=== PATIENT | male | born 1960 | race African-American/Black ===

== ENCOUNTER 2022-10-27 09:09 | Inpatient (IN) | payer MEDICAID ==
[~2022-10-27] VITALS: Ht 175.3 cm; Wt 124.3 kg
--- NOTE | 2022-10-27 09:20 | NUR ---
PT AMBULATED TO BED 12 WITH CANE. DAUGHTER AT BEDSIDE Addendum: 10/27/22 at 1133 by [email or web address] PT AMBULATED TO BED 12 WITH CANE. AT BEDSIDE
[2022-10-27 09:22] VITALS: BP 137/84; PULSE 103; RESP 14; TEMP 97.8; O2SAT 97
--- NOTE | 2022-10-27 10:09 | NUR ---
ASSESSING PT AT BEDSIDE
--- NOTE | 2022-10-27 10:10 | NUR ---
PATIENT PRESENTS TO ED WITH BILATERAL LEG, ABD, TESTICLE SWELLING X7DAYS. PT STATES SWELLING WORSE AND DIFFICULTY URINATING . DENIES N/V/D; SKIN IS PINK/WARM/DRY; AAOX4 WITH EVEN AND UNSTEADY GAIT USE OF WALKING DEVICE; HR EVEN AND REGULAR; PT DENIES ANY FEVER, CP, SOB, OR COUGH AT THIS TIME; PATIENT STATES PAIN OF 3/10 AT THIS TIME; VSS; PATIENT POSITIONED FOR COMFORT; HOB ELEVATED; BEDRAILS UP X2; BED DOWN. ER MD MADE AWARE OF PT STATUS. CALL LIGHT WITH REACH
--- NOTE | 2022-10-27 10:17 | NUR ---
X-Ray at bedside.
[2022-10-27 10:49] LABS: BASOPHILS # (AUTO) 0.1 K/uL (0.00-0.22); BASOPHILS % (AUTO) 0.6 % (0.0-2.0); EOSINOPHILS # (AUTO) 0.3 K/uL (0-0.4); EOSINOPHILS % (AUTO) 3.6 % (0.0-4.0); HEMATOCRIT 24.6 % (36-52); LYMPHOCYTES # (AUTO) 1.3 K/uL (2.0-11.5); LYMPHOCYTES % (AUTO) 15.9 % (20.5-51.1); MEAN CORPUSCULAR HEMOGLOBIN 29 pg (27-31); MEAN CORPUSCULAR HGB CONC 33 g/dL (33-37); MEAN CORPUSCULAR VOLUME 88.8 fL (80-94); MONOCYTES # (AUTO) 1.1 K/uL (0.8-1.0); MONOCYTES % (AUTO) 13.9 % (1.7-9.3); NEUTROPHILS # (AUTO) 5.3 K/uL (1.8-7.7); PLATELET COUNT (AUTO) 239 K/uL (140-450); RED BLOOD CELL COUNT(AUTO) 2.77 MIL/uL (4.20-6.10); RED CELL DISTRIBUTION WIDTH 20.7 % (11.6-13.7)
--- NOTE | 2022-10-27 11:08 | NUR ---
pt encouraged to give urine sample. unable to give at this time. urinal left at bedside. warm blanket provided. call light within reach
[2022-10-27 11:17] LABS: ALBUMIN 2.2 g/dL (3.4-5.0); ANION GAP 11.8 (8-16); CARBON DIOXIDE 26.5 mmol/L (21-32); CREATININE 2.6 mg/dL (0.6-1.3); POTASSIUM 4.3 mmol/L (3.5-5.1); TOTAL BILIRUBIN 0.9 mg/dL (0.0-1.0)
[2022-10-27 11:19] LABS: PROTHROMBIN TIME 14.4 secs (10.8-13.4)
[2022-10-27 11:22] LABS: LIPASE 89 U/L (73-393)
[2022-10-27] MEDS ORDERED: GABA-640 PO (11:35)
[2022-10-27] MEDS ORDERED: METH-1867 PO (11:35)
[2022-10-27] MEDS ORDERED: FURO40TA9 PO (11:35)
[2022-10-27] MEDS ORDERED: [UNRECOGNIZED DRUG - CODE] PO (11:42)
[2022-10-27] MEDS ORDERED: SIMV-30 PO (11:42)
[2022-10-27] MEDS ORDERED: FERR-15 PO (11:42)
[2022-10-27] MEDS ORDERED: [UNRECOGNIZED DRUG - CODE] PO (11:42)
[2022-10-27] MEDS ORDERED: NACL 0.9% 1,000 ML IV SCH (12:50)
[2022-10-27] MEDS ORDERED: MAGNESIUM OXIDE 400 MG TAB PO PRN (12:50)
[2022-10-27] MEDS ORDERED: ACETAMINOPHEN 325 MG TAB PO PRN (12:50)
[2022-10-27] MEDS ORDERED: ONDANSETRON 4 MG/2 ML VIAL IVP PRN (12:50)
[2022-10-27] MEDS ORDERED: cefTRIAXone 1,000 MG VIAL ONE (13:07)
[2022-10-27] MEDS: FUROSEMIDE 40 MG/4 ML VIAL IVP SCH ×2 (13:27→20:38)
--- NOTE | 2022-10-27 14:31 | NUR ---
Patient will be admitted to care of [facility]. Admited to MED SURG. Will go to [id number]. Belongings list completed. Report to NIC YOON.
[2022-10-27 14:34] LABS: APPEARANCE,URINE CLEAR (CLEAR); BILIRUBIN,URINE NEGATIVE (NEGATIVE); BLOOD, URINE NEGATIVE (NEGATIVE); COLOR,URINE YELLOW (YELLOW); LEUKOCYTE ESTERASE ,URINE NEGATIVE (NEGATIVE); NITRITE, URINE NEGATIVE (NEGATIVE); UGLUCOSE NEGATIVE (NEGATIVE)
--- NOTE | 2022-10-27 14:48 | NUR ---
RECEIVE MR. DOUGLAS FROM ER NURSE THAT PATIENT COME FROM HOME FOR BODY SWELLING FROM CHEST DOWN WHICH DIAGNOSIS ANASARCA WITH HX OF DM, HTN, GASTRIC ULCER GI BLEEDING & IVER CIRRHOSIS/DISEASE. PATIENT HAS NKA, FULL CODE, ABLE TO AMBULATORY W/ CANE, ALERT X 4, ON ROOM AIR. CURRENT IS NPO EXCEPT MEDS STATUS; PIV AT RAC 20G SALINE LOCK. NO ACUTE SKIN ISSUE; VITAL WITHIN PATIENT'S BASELINE (T-P-R: 97.1-86-20, BP: 131/73, O2 SAT 99% IN ROOM AIR, X-RAY SHOWS LOWER LUNG VOLUME AT LOWER LOBES. ROCEPHIN GIVE IN ER. WILL CONTINUE TO MONITOR
--- NOTE | 2022-10-27 15:35 | NUR ---
PATIENT HAS BEEN SCREENED AND CATEGORIZED LOW NUTRITION RISK. PATIENT WILL BE SEEN WITHIN 7 DAYS OF ADMISSION. 11/03/[address]
--- NOTE | 2022-10-27 15:46 | NUR ---
DC PLANN[age] YRS OLD MALE PATIENT WAS ADMITTED FROM HOME WITH A DX OF ANASARCA. PATIENT HAS A HX OF DM, HTN, GI BLEED ETOH CIRRHOSIS. CXR SHOWED LOW LUNG VOLUME . US KIDNEY NORMAL. ABDOMINAL US SHOWED MODERATE TO LARGE ABDOMINAL ASCITES. ADMINISTERED IV ABX ROCEPHIN AND LASIX AND IRON IV. CONTINUED HOME MEDS. CONSULTED WITH GI AND NEPHRO. DC PLAN TO GO HOME WHEN STABLE. Addendum: 10/30/22 at 1103 by June Garcia RN DC PLANNING: SEEN BY GI DR HEADLEY ORDERED IR TO PERFORM PARACENTESIS HOWEVER PT/INR 1.35 AND 65.0 ON 10/29. UNABLE TO PERFORM PARACENTESIS BECAUSE OF HIGH PTT. CM TO FOLLOW
[2022-10-27 16:00] VITALS: BP 141/70; PULSE 85; RESP 17; TEMP 97.2; O2SAT 97
[2022-10-27 19:23] VITALS: PULSE 85; RESP 17; O2SAT 97
--- NOTE | 2022-10-27 19:25 | NUR ---
RECEIVED BEDSIDE REPORT FROM NIC YOON FOR CONTINUITY OF CARE. PATIENT IS AWAKE AND STABLE. A&OX4. C/O 10 BACK PAIN. ENDORSED TO NIC YOON FOR IV PRN. ON ROOM AIR WITH NO APPARENT S/SX OF ACUTE DISTRESS. RESPIRATIONS EVEN AND UNLABORED. IV SITE TO THE RAC 20G PATENT/INTACT SL. PATIENT IS CONTINENT IS ABLE TO AMBULATE. PLAN OF CARE AND WHITE COMMUNICATION BOARD UPDATED. ALL SAFETY MEASURES IN PLACE. CALL LIGHT WITHIN REACH. ENCOURAGED TO CALL FOR ANY NEEDS/ASSISTANCE. BED IN LOW/LOCKED POSITION. SIDE RAILS X2 UP. WILL CONTINUE TO MONITOR.
[2022-10-27] MEDS: MORPHINE SULFATE 4 MG/ML SYR IVP PRN (19:35)
[2022-10-27 20:00] VITALS: BP 138/75; PULSE 80; PULSE 88; RESP 18; RESP 20; TEMP 98.2; O2SAT 95; O2SAT 96
--- NOTE | 2022-10-27 20:00 | NUR ---
Patient's Plan of Care was discussed and reviewed with MAYO GIFFORD:
--- NOTE | 2022-10-27 21:05 | NUR ---
U/S TECH AT BEDSIDE WITH PATIENT. PATIENT REPORTS PAIN MEDICATION EFFECTIVE. RESPIRATIONS EVEN AND UNLABORED WITH NO APPARENT S/SX OF ACUTE DISTRESS. INFORMED PATIENT THAT STOOL CULTURE IS NEEDED PER MD ORDER. PATIENT WILL CALL IF ABOUT TO HAVE A BOWEL MOVEMENT. PATIENT VERBALIZED UNDERSTANDING. ALL SAFETY MEASURES IN PLACE. CALL LIGHT WITHIN REACH. ENCOURAGED TO CALL FOR ANY NEEDS/ASSISTANCE. BED IN LOW/LOCKED POSITION. HOB AT 30 DEGREES. SIDE RAILS X2 UP. WILL CONTINUE TO MONITOR.
--- NOTE | 2022-10-27 23:10 | NUR ---
PATIENT IS AWAKE AND STABLE WHILE WATCHING TV. DENIES PAIN AT THIS TIME. RESPIRATIONS EVEN AND UNLABORED WITH NO APPARENT S/SX OF ACUTE DISTRESS. WHITE COMMUNICATION BOARD UPDATED. ALL SAFETY MEASURES IN PLACE. CALL LIGHT WITHIN REACH. ENCOURAGED TO CALL FOR ANY NEEDS/ASSISTANCE. BED IN LOW/LOCKED POSITION. SIDE RAILS X2 UP. WILL CONTINUE TO MONITOR.
--- NOTE | 2022-10-28 01:10 | NUR ---
PROVIDED SOME ICE CHIPS PER PATIENT REQUEST. DENIES PAIN AT THIS TIME. RESPIRATIONS EVEN AND UNLABORED WITH NO APPARENT S/SX OF ACUTE DISTRESS. WHITE COMMUNICATION BOARD UPDATED. ALL SAFETY MEASURES IN PLACE. CALL LIGHT WITHIN REACH. BED IN LOW/LOCKED POSITION. WILL CONTINUE TO MONITOR.
[2022-10-28 04:00] VITALS: BP 96/53; PULSE 94; RESP 17; TEMP 97.6; O2SAT 100
--- NOTE | 2022-10-28 05:05 | NUR ---
PATIENT STABLE AND ASLEEP WITH NO FACIAL GRIMACING. FLACC=0. CHEST IS RISING AND FALLING SYMMETRICALLY. RESPIRATIONS EVEN AND UNLABORED WITH NO APPARENT S/SX OF ACUTE DISTRESS. ALL NEEDS MET AT THIS TIME. WHITE COMMUNICATION BOARD UPDATED. ALL SAFETY MEASURES IN PLACE. CALL LIGHT WITHIN REACH. BED IN LOW/LOCKED POSITION. SIDE RAILS X2 UP. WILL CONTINUE TO MONITOR.
[2022-10-28 06:02] LABS: BASOPHILS # (AUTO) 0.1 K/uL (0.00-0.22); BASOPHILS % (AUTO) 0.9 % (0.0-2.0); EOSINOPHILS # (AUTO) 0.4 K/uL (0-0.4); EOSINOPHILS % (AUTO) 5.2 % (0.0-4.0); HEMATOCRIT 23.4 % (36-52); HEMOGLOBIN 7.7 g/dL (12.0-18.0); LYMPHOCYTES # (AUTO) 1.6 K/uL (2.0-11.5); LYMPHOCYTES % (AUTO) 23.4 % (20.5-51.1); MEAN CORPUSCULAR HEMOGLOBIN 29 pg (27-31); MEAN CORPUSCULAR HGB CONC 33 g/dL (33-37); MEAN CORPUSCULAR VOLUME 87.8 fL (80-94); MONOCYTES # (AUTO) 1.2 K/uL (0.8-1.0); MONOCYTES % (AUTO) 17.5 % (1.7-9.3); NEUTROPHILS # (AUTO) 3.7 K/uL (1.8-7.7); PLATELET COUNT (AUTO) 227 K/uL (140-450); RED BLOOD CELL COUNT(AUTO) 2.66 MIL/uL (4.20-6.10); RED CELL DISTRIBUTION WIDTH 20.2 % (11.6-13.7)
[2022-10-28 06:18] LABS: MAGNESIUM 1.7 mg/dL (1.8-2.4); PHOSPHORUS 4.1 mg/dL (2.5-4.9)
[2022-10-28 06:22] LABS: ALBUMIN 1.9 g/dL (3.4-5.0); ANION GAP 10.4 (8-16); CARBON DIOXIDE 26.3 mmol/L (21-32); CREATININE 2.3 mg/dL (0.6-1.3); POTASSIUM 3.7 mmol/L (3.5-5.1); TOTAL BILIRUBIN 0.9 mg/dL (0.0-1.0)
[2022-10-28] MEDS ORDERED: ALBUMIN HUMAN 25% 100 ML IV SCH (06:56)
--- NOTE | 2022-10-28 07:05 | NUR ---
ENDORSED PATIENT TO NIC YOON FOR CONTINUITY OF CARE. PATIENT IS STABLE.
[2022-10-28] MEDS ORDERED: MAG SULF 2000 MG/WATER PREMIX 50 ML IV SCH (07:15)
[2022-10-28] MEDS: FUROSEMIDE 40 MG/4 ML VIAL IVP SCH ×3 (07:49→18:29)
[2022-10-28 08:00] VITALS: BP 108/68; PULSE 94; RESP 18; TEMP 97.3; O2SAT 95
[2022-10-28] MEDS: SPIRONOLACTONE 25 MG TAB PO SCH (10:23)
[2022-10-28] MEDS: SODIUM FERRIC GLUCONATE 125 MG in NACL 0.9% 100 ML IV SCH (10:23)
[2022-10-28] MEDS: MORPHINE SULFATE 4 MG/ML SYR IVP PRN (10:25)
[2022-10-28] MEDS: MIDODRINE 5 MG TAB PO SCH ×2 (12:57→18:29)
--- NOTE | 2022-10-28 13:40 | NUR ---
Rehabilitation Therapy Aide ECONOMIC ADVISER conducted a discharge planning assessment. Pt. was agreeable to this interview. The face sheet demographics have been confirmed. Pt. resides in a home with his and 3 kids. Pt. stated he does not want to participate in any substance program and can stop drinking on his own just like he did with [employer], "back in the day" . Pt. stated he use to drink beer but had cut down. About two months ago, had been at [facility] and had a bleeding ulcer. feels this scared pt. and does not see pt. drinking. Pt. stated he did not want to participate in any program. ECONOMIC ADVISER provided resources, mental health and substance abuse. Pt. stated about 3 years ago had been placed on a 5150 and was diagnosed with depression and anxiety, was prescribed medication but did not like the way it made him feel so he stopped taking meds. ECONOMIC ADVISER educated pt. stating there were other meds he could take if he wanted. ECONOMIC ADVISER provided pt with alcohol and substance abuse resources as well and mental health resources to get a therapist. ECONOMIC ADVISER will remain available as needed.
[2022-10-28 14:21] LABS: CREATININE,URINE RANDOM 231 mg/dL (30-125); URINE SODIUM, RANDOM 12 mmol/l (40-220)
[2022-10-28 16:00] VITALS: BP 109/69; PULSE 98; RESP 18; TEMP 96; O2SAT 91
--- NOTE | 2022-10-28 19:05 | NUR ---
RECEIVED BEDSIDE REPORT FROM NIC YOON FOR CONTINUITY OF CARE. PATIENT IS AWAKE AND STABLE. A&OX4. DENIES PAIN AT THIS TIME. COLLECTED STOOL SAMPLE FOR STOOL OCCULT PER MD ORDER. ON ROOM AIR WITH NO APPARENT S/SX OF ACUTE DISTRESS. RESPIRATIONS EVEN AND UNLABORED. IV SITE TO THE RAC 20G PATENT/INTACT SL. PATIENT IS CONTINENT IS ABLE TO AMBULATE. PLAN OF CARE AND WHITE COMMUNICATION BOARD UPDATED. ALL SAFETY MEASURES IN PLACE. CALL LIGHT WITHIN REACH. ENCOURAGED TO CALL FOR ANY NEEDS/ASSISTANCE. BED IN LOW/LOCKED POSITION. SIDE RAILS X2 UP. WILL CONTINUE TO MONITOR.
[2022-10-28 20:00] VITALS: BP 115/71; PULSE 92; RESP 18; RESP 19; TEMP 98.7; O2SAT 95
--- NOTE | 2022-10-28 21:00 | NUR ---
Patient's Plan of Care was discussed and reviewed with ИРИНА GODINEZ
--- NOTE | 2022-10-28 21:05 | NUR ---
EMPTIED PATIENT'S BEDSIDE URINAL. TOLERATED WELL. DENIES PAIN AT THIS TIME. NO NEEDS AT THIS TIME PER PATIENT. RESPIRATIONS EVEN AND UNLABORED WITH NO APPARENT S/SX OF ACUTE DISTRESS. WHITE COMMUNICATION BOARD UPDATED. ALL SAFETY MEASURES IN PLACE. CALL LIGHT WITHIN REACH. ENCOURAGED TO USE CALL LIGHT FOR ANY NEEDS/ASSISTANCE. WILL CONTINUE TO MONITOR.
[2022-10-29] MEDS: FUROSEMIDE 40 MG/4 ML VIAL IVP SCH ×4 (00:24→18:13)
--- NOTE | 2022-10-29 03:00 | NUR ---
CHECKED PATIENT. PATIENT IS STABLE AND ASLEEP WITH NO FACIAL GRIMACING. FLACC=0. CHEST IS RISING AND FALLING SYMMETRICALLY. RESPIRATIONS EVEN AND UNLABORED WITH NO APPARENT S/SX OF ACUTE DISTRESS. WHITE COMMUNICATION BOARD UPDATED. ALL SAFETY MEASURES IN PLACE. CALL LIGHT WITHIN REACH. BED IN LOW/LOCKED POSITION. WILL CONTINUE TO MONITOR.
[2022-10-29 04:00] VITALS: BP 118/68; PULSE 89; RESP 19; TEMP 97.6; O2SAT 98
[2022-10-29] MEDS: MORPHINE SULFATE 4 MG/ML SYR IVP PRN ×3 (04:41→18:13)
--- NOTE | 2022-10-29 05:00 | NUR ---
PATIENT IS AWAKE AND STABLE. PATIENT WAS MEDICATED AT 0441 FOR SEVERE PAIN. WILL REASSESS AT 0541. RESPIRATIONS EVEN AND UNLABORED WITH NO APPARENT S/SX OF ACUTE DISTRESS. ALL NEEDS MET AT THIS TIME. WHITE COMMUNICATION BOARD UPDATED. ALL SAFETY MEASURES IN PLACE. CALL LIGHT WITHIN REACH. ENCOURAGED TO CALL FOR ANY NEEDS/ASSISTANCE. BED IN LOW/LOCKED POSITION. SIDE RAILS X2 UP. WILL CONTINUE TO MONITOR.
[2022-10-29] MEDS: MIDODRINE 5 MG TAB PO SCH ×3 (06:04→19:00)
[2022-10-29 06:45] LABS: BASOPHILS # (AUTO) 0.1 K/uL (0.00-0.22); EOSINOPHILS # (AUTO) 0.3 K/uL (0-0.4); EOSINOPHILS % (AUTO) 4.3 % (0.0-4.0); HEMATOCRIT 23.9 % (36-52); HEMOGLOBIN 7.7 g/dL (12.0-18.0); LYMPHOCYTES # (AUTO) 1.8 K/uL (2.0-11.5); LYMPHOCYTES % (AUTO) 25.7 % (20.5-51.1); MEAN CORPUSCULAR HEMOGLOBIN 28 pg (27-31); MEAN CORPUSCULAR HGB CONC 32 g/dL (33-37); MEAN CORPUSCULAR VOLUME 87.3 fL (80-94); MONOCYTES # (AUTO) 1.3 K/uL (0.8-1.0); MONOCYTES % (AUTO) 17.8 % (1.7-9.3); NEUTROPHILS # (AUTO) 3.6 K/uL (1.8-7.7); NEUTROPHILS % (AUTO) 51.2 % (42.2-75.2); PLATELET COUNT (AUTO) 242 K/uL (140-450); RED BLOOD CELL COUNT(AUTO) 2.74 MIL/uL (4.20-6.10); RED CELL DISTRIBUTION WIDTH 20.7 % (11.6-13.7); WHITE BLOOD COUNT (AUTO) 7.1 K/uL (4.8-10.8)
[2022-10-29 06:47] LABS: MAGNESIUM 1.8 mg/dL (1.8-2.4); PHOSPHORUS 3.8 mg/dL (2.5-4.9)
[2022-10-29 06:56] LABS: ALBUMIN 2.2 g/dL (3.4-5.0); CARBON DIOXIDE 24.5 mmol/L (21-32); CREATININE 1.9 mg/dL (0.6-1.3); POTASSIUM 3.5 mmol/L (3.5-5.1); TOTAL BILIRUBIN 0.7 mg/dL (0.0-1.0)
--- NOTE | 2022-10-29 07:05 | NUR ---
ENDORSED PATIENT TO CLARA YOON FOR CONTINUITY OF CARE. PATIENT IS STABLE.
[2022-10-29 08:00] VITALS: PULSE 62; RESP 18; O2SAT 98
[2022-10-29] MEDS: metOLazone 5 MG TAB PO SCH ×2 (09:00→21:03)
[2022-10-29] MEDS: SPIRONOLACTONE 25 MG TAB PO SCH (10:32)
[2022-10-29] MEDS: SODIUM FERRIC GLUCONATE 125 MG in NACL 0.9% 100 ML IV SCH (10:34)
--- NOTE | 2022-10-29 12:00 | NUR ---
PT IV INFILTRATED. NEW IV TO LEFT AC 20G. NEW IV CLEAN, INTACT, PT. NO FURTHER NEEDS TO BE MET, CALL LIGHT WITHIN REACH.
[2022-10-29 16:00] VITALS: BP 125/67; PULSE 79; RESP 20; TEMP 97.1; O2SAT 100
--- NOTE | 2022-10-29 19:00 | NUR ---
ENDORSED TO NIGHTSHIFT NURSE FOR CONTINUITY OF CARE. PT STABLE - NO SIGNS OF DISTRESS. CALL LIGHT IS WITHIN REACH.
--- NOTE | 2022-10-29 19:20 | NUR ---
PATIENT AWAKE ALERT WELL RESTED ON ROOM AIR. NO SOB NOTED. RESPIRATION EVEN UNLABORED. IV ACCESS ON THE LAC 20 GAUGE. CALL LIGHT WITHIN REACH. NO COMPLAINTS OF PAIN AT THIS TIME. BED WHEELS LOCK IN LOW POSITION.
[2022-10-29 20:00] VITALS: PULSE 85; RESP 18; O2SAT 98
--- NOTE | 2022-10-29 21:03 | NUR ---
ADMINISTERED SCHEDULED MEDICATION PER MD ORDER.
[2022-10-30 04:00] VITALS: BP 117/69; PULSE 94; RESP 18; TEMP 97; O2SAT 97
[2022-10-30] MEDS: FUROSEMIDE 40 MG/4 ML VIAL IVP SCH ×2 (06:00)
[2022-10-30 06:26] LABS: MAGNESIUM 1.6 mg/dL (1.8-2.4); PHOSPHORUS 3.5 mg/dL (2.5-4.9)
[2022-10-30] MEDS: MIDODRINE 5 MG TAB PO SCH ×3 (06:35→20:59)
[2022-10-30 06:38] LABS: BASOPHILS # (AUTO) 0.1 K/uL (0.00-0.22); BASOPHILS % (AUTO) 0.8 % (0.0-2.0); EOSINOPHILS # (AUTO) 0.2 K/uL (0-0.4); EOSINOPHILS % (AUTO) 3.5 % (0.0-4.0); HEMATOCRIT 24.6 % (36-52); HEMOGLOBIN 8.1 g/dL (12.0-18.0); LYMPHOCYTES # (AUTO) 1.2 K/uL (2.0-11.5); LYMPHOCYTES % (AUTO) 19.7 % (20.5-51.1); MEAN CORPUSCULAR HEMOGLOBIN 29 pg (27-31); MEAN CORPUSCULAR HGB CONC 33 g/dL (33-37); MEAN CORPUSCULAR VOLUME 87.8 fL (80-94); MONOCYTES # (AUTO) 1.2 K/uL (0.8-1.0); MONOCYTES % (AUTO) 19.5 % (1.7-9.3); NEUTROPHILS # (AUTO) 3.5 K/uL (1.8-7.7); NEUTROPHILS % (AUTO) 56.5 % (42.2-75.2); PLATELET COUNT (AUTO) 251 K/uL (140-450); RED CELL DISTRIBUTION WIDTH 20.4 % (11.6-13.7); WHITE BLOOD COUNT (AUTO) 6.3 K/uL (4.8-10.8)
--- NOTE | 2022-10-30 06:41 | NUR ---
PATIENT IS ASKING FOR MORPHINE , DID NOT ADMINISTER DUE TO LOW BP- 101/69.
[2022-10-30 06:57] LABS: ALBUMIN 2.3 g/dL (3.4-5.0); ANION GAP 11.9 (8-16); CARBON DIOXIDE 27.2 mmol/L (21-32); CREATININE 1.8 mg/dL (0.6-1.3); POTASSIUM 3.1 mmol/L (3.5-5.1); TOTAL BILIRUBIN 0.7 mg/dL (0.0-1.0)
[2022-10-30] MEDS ORDERED: POTASSIUM CHLORIDE 10 MEQ TABER PO SCH (07:14)
[2022-10-30] MEDS ORDERED: MAG SULF 2000 MG/WATER PREMIX 50 ML IV SCH (07:14)
--- NOTE | 2022-10-30 07:23 | NUR ---
receive the patient from the night auditor rn in rm [address] with admitting diagnosis of anasarca . schedule for paracentesis today . will continue to monitor
--- NOTE | 2022-10-30 07:33 | NUR ---
BEDSIDE REPORT GIVEN TO AM NURSE FOR CONTINUITY OF CARE.
[2022-10-30 07:56] VITALS: PULSE 82
[2022-10-30 07:58] VITALS: PULSE 82; RESP 20; O2SAT 99
[2022-10-30 08:00] VITALS: BP 139/67; PULSE 85; RESP 20; TEMP 97.6; O2SAT 100
[2022-10-30] MEDS: SPIRONOLACTONE 25 MG TAB PO SCH (09:08)
[2022-10-30] MEDS: SODIUM FERRIC GLUCONATE 125 MG in NACL 0.9% 100 ML IV SCH (09:08)
[2022-10-30] MEDS: metOLazone 5 MG TAB PO SCH ×2 (09:10→20:58)
[2022-10-30] MEDS: MORPHINE SULFATE 4 MG/ML SYR IVP PRN ×2 (11:23→22:02)
[2022-10-30 12:20] LABS: PROTHROMBIN TIME 15.2 secs (10.8-13.4)
[2022-10-30] MEDS: FUROSEMIDE 100 MG/10 ML VIAL IVP SCH ×3 (12:25→23:39)
--- NOTE | 2022-10-30 14:26 | NUR ---
reported PTT 71.4 to Md Richards . ok to go on with paracentesis . will make the patient sign consent
--- NOTE | 2022-10-30 14:45 | NUR ---
Md Nunes perform paracentesis for the patinet bedside . was able to have output 7.8 liters . patient able to tolerate the procedure . all the samples was sent to the lab for culture . albumin was also administered to prevent hypotension
[2022-10-30 16:00] VITALS: BP 125/67; PULSE 79; RESP 20; TEMP 97.1; O2SAT 100
[2022-10-30] MEDS ORDERED: ALBUMIN HUMAN 25% 50 ML IV ONE ×3 (17:05)
[2022-10-30] MEDS: ALBUMIN HUMAN 25% 100 ML IV SCH ×2 (17:27→20:59)
[2022-10-30 18:07] LABS: APPEARANCE,SPUN,BODY FLUID CLEAR (CLEAR); APPEARANCE,UNSPUN,BODY FLUID CLEAR (CLEAR); COLOR,BODY FLUID LT YELLOW (LT YELLOW); SPECIMENTYPE,BODY FLUID PERITONEAL
[2022-10-30 18:08] LABS: RBC, BODY FLUID 333 /cu. mm.; TOTAL VOLUME,BODY FLUID 7800 mL; WBC, BODY FLUID 98 /cu. mm.
[2022-10-30 18:13] LABS: GLUCOSE,BODY FLUID 150 mg/dL
[2022-10-30 18:29] LABS: POLYNUCLEAR, BODY FLUID 42 %
--- NOTE | 2022-10-30 19:07 | NUR ---
will endorse to solder technician rn for continuity of care. will continue to monitor
[2022-10-30 20:00] VITALS: BP 101/61; PULSE 94; RESP 18; TEMP 97.9; O2SAT 94
--- NOTE | 2022-10-30 20:55 | NUR ---
PATIENT IV INFILTRATED. STARTED A NEW IV LINE TO RIGHT HAND WITH GOOD BACK FLOW OF BLOOD. WELL TOLERATED. RESUME ALBUMIN HUMAN 25%.
--- NOTE | 2022-10-30 20:58 | NUR ---
ALL SCHEDULED MEDICATIONS ADMINISTERED PER MD ORDER.
[2022-10-30] MEDS ORDERED: ALBUMIN HUMAN 25% 100 ML IV SCH ×2 (22:55)
[2022-10-30] MEDS ORDERED: ALBUMIN HUMAN 25% 50 ML IV SCH (22:55)
--- NOTE | 2022-10-31 02:25 | NUR ---
PATIENT STARTED BLOOD TRANSFUSION OF FROZEN PLASMA. CLOSELY MONITORED. V/S TAKEN AND RECORDED.
--- NOTE | 2022-10-31 03:25 | NUR ---
BLOOD TRANSFUSION COMPLETED . NO ADVERSE REACTION NOTED AT THIS TIME.
[2022-10-31] MEDS: FUROSEMIDE 100 MG/10 ML VIAL IVP SCH ×4 (05:54→23:47)
[2022-10-31 06:02] LABS: BASOPHILS # (AUTO) 0.1 K/uL (0.00-0.22); BASOPHILS % (AUTO) 0.9 % (0.0-2.0); EOSINOPHILS # (AUTO) 0.2 K/uL (0-0.4); EOSINOPHILS % (AUTO) 3.6 % (0.0-4.0); HEMATOCRIT 22.3 % (36-52); HEMOGLOBIN 7.5 g/dL (12.0-18.0); LYMPHOCYTES # (AUTO) 1.6 K/uL (2.0-11.5); LYMPHOCYTES % (AUTO) 23.9 % (20.5-51.1); MEAN CORPUSCULAR HEMOGLOBIN 29 pg (27-31); MEAN CORPUSCULAR HGB CONC 34 g/dL (33-37); MEAN CORPUSCULAR VOLUME 86.1 fL (80-94); MONOCYTES # (AUTO) 1.3 K/uL (0.8-1.0); MONOCYTES % (AUTO) 18.9 % (1.7-9.3); NEUTROPHILS # (AUTO) 3.5 K/uL (1.8-7.7); NEUTROPHILS % (AUTO) 52.7 % (42.2-75.2); PLATELET COUNT (AUTO) 228 K/uL (140-450); RED BLOOD CELL COUNT(AUTO) 2.59 MIL/uL (4.20-6.10); RED CELL DISTRIBUTION WIDTH 20.3 % (11.6-13.7); WHITE BLOOD COUNT (AUTO) 6.7 K/uL (4.8-10.8)
--- NOTE | 2022-10-31 07:04 | NUR ---
PATIENT IN STABLE CONDITION. WILL ENDORSE TO MORNING NURSE FOR CONTINUITY OF CARE.
[2022-10-31] MEDS: MIDODRINE 5 MG TAB PO SCH ×3 (07:07→16:47)
--- NOTE | 2022-10-31 07:07 | NUR ---
receive the patient from maintenance technician 2nd shift malik Burnham in rm [address] aox4 admitting diagnosis anasarca . will continue to monitor
[2022-10-31 07:30] LABS: MAGNESIUM 1.6 mg/dL (1.8-2.4); PHOSPHORUS 2.9 mg/dL (2.5-4.9)
[2022-10-31 07:48] VITALS: PULSE 88
[2022-10-31 07:49] VITALS: PULSE 93; RESP 20; O2SAT 99
[2022-10-31 08:00] VITALS: BP 107/55; PULSE 91; RESP 18; TEMP 97; O2SAT 100
[2022-10-31] MEDS: metOLazone 5 MG TAB PO SCH ×2 (09:32→21:01)
[2022-10-31] MEDS: SPIRONOLACTONE 25 MG TAB PO SCH (09:33)
[2022-10-31] MEDS: SODIUM FERRIC GLUCONATE 125 MG in NACL 0.9% 100 ML IV SCH (09:34)
[2022-10-31 10:08] LABS: ALBUMIN 2.5 g/dL (3.4-5.0); ANION GAP 16.7 (8-16); CARBON DIOXIDE 23.5 mmol/L (21-32); CREATININE 1.4 mg/dL (0.6-1.3); POTASSIUM 3.2 mmol/L (3.5-5.1); TOTAL BILIRUBIN 0.8 mg/dL (0.0-1.0)
[2022-10-31] MEDS: MORPHINE SULFATE 4 MG/ML SYR IVP PRN ×3 (10:14→23:58)
[2022-10-31] MEDS: POTASSIUM CHLORIDE 10 MEQ TABER PO PRN (12:36)
[2022-10-31 16:00] VITALS: BP 109/67; PULSE 64; RESP 20; TEMP 98.7; O2SAT 98
--- NOTE | 2022-10-31 19:18 | NUR ---
will endorse to pull socket assembler malik Burnham for continuity of care . for Nephrology consult under Md Camp . md camp have seen the patient
[2022-10-31 20:00] VITALS: PULSE 87; RESP 18; O2SAT 94
--- NOTE | 2022-10-31 20:00 | NUR ---
PATIENT AWAKE RESTING WATCHING TV. NO S/S OF DISTRESS. RESPIRATION EVEN UNLABORED. NO COMPLAINTS OF PAIN AT THIS TIME. IV ACCESS TO LEFT AC SALINE LOCK. CALL LIGHT WITHIN REACH. BED WHEELS LOCKED IN LOW POSITION. VISITORS AT BEDSIDE.
--- NOTE | 2022-10-31 21:01 | NUR ---
DUE MEDICATION GIVEN ORDERED.
[2022-11-01 04:00] VITALS: BP 95/54; PULSE 84; RESP 18; TEMP 97.6; O2SAT 95
[2022-11-01] MEDS: FUROSEMIDE 100 MG/10 ML VIAL IVP SCH ×4 (06:00→23:25)
[2022-11-01] MEDS: MIDODRINE 5 MG TAB PO SCH ×3 (06:21→17:37)
[2022-11-01] MEDS ORDERED: DEXTROSE 50% 50 ML SYR IVP PRN (06:35)
[2022-11-01] MEDS ORDERED: INSULIN LISPRO SLIDING SCALE 100 UNITS/ML VIAL SUBQ PRN (06:35)
[2022-11-01 06:50] LABS: HEMATOCRIT 24.1 % (36-52); HEMOGLOBIN 7.9 g/dL (12.0-18.0); MEAN CORPUSCULAR HEMOGLOBIN 29 pg (27-31); MEAN CORPUSCULAR HGB CONC 33 g/dL (33-37); MEAN CORPUSCULAR VOLUME 87.9 fL (80-94); PLATELET COUNT (AUTO) 246 K/uL (140-450); RED BLOOD CELL COUNT(AUTO) 2.74 MIL/uL (4.20-6.10); RED CELL DISTRIBUTION WIDTH 20.4 % (11.6-13.7); WHITE BLOOD COUNT (AUTO) 7.7 K/uL (4.8-10.8)
[2022-11-01 06:58] LABS: MAGNESIUM 1.2 mg/dL (1.8-2.4); PHOSPHORUS 2.7 mg/dL (2.5-4.9)
--- NOTE | 2022-11-01 07:09 | NUR ---
receive the patient from the night shift supervisor malik Burnham in [address] aox4 with admitting anasarca will continue to monitor
[2022-11-01 07:10] LABS: ALBUMIN 2.4 g/dL (3.4-5.0); ANION GAP 7.6 (8-16); CARBON DIOXIDE 33.4 mmol/L (21-32); CREATININE 1.2 mg/dL (0.6-1.3); TOTAL BILIRUBIN 0.9 mg/dL (0.0-1.0)
--- NOTE | 2022-11-01 07:25 | NUR ---
GAVE REPORT TO MORNING NURSE FOR CONTINUITY OF CARE. PATIENT STABLE.
[2022-11-01] MEDS: BLOOD GLUCOSE MONITORING 1 DEV DEV FS SCH ×4 (07:30→20:50)
[2022-11-01 07:39] VITALS: PULSE 89
[2022-11-01 07:40] LABS: EOSINOPHILS % (MANUAL) 4 % (0-4); LYMPHOCYTES % (MANUAL) 20 % (20-46); MONOCYTES % (MANUAL) 15 % (5-12)
[2022-11-01 08:00] VITALS: BP 108/61; PULSE 91; RESP 18; TEMP 97; O2SAT 100
[2022-11-01 08:12] VITALS: PULSE 83; RESP 20; O2SAT 99
[2022-11-01] MEDS: SPIRONOLACTONE 25 MG TAB PO SCH (09:16)
[2022-11-01] MEDS: POTASSIUM CHLORIDE 10 MEQ TABER PO PRN (09:16)
[2022-11-01] MEDS: metOLazone 5 MG TAB PO SCH ×2 (09:16→20:21)
[2022-11-01] MEDS: SODIUM FERRIC GLUCONATE 125 MG in NACL 0.9% 100 ML IV SCH (09:18)
[2022-11-01] MEDS: MORPHINE SULFATE 4 MG/ML SYR IVP PRN ×2 (12:10→20:24)
[2022-11-01] MEDS ORDERED: POTASSIUM CHLORIDE 40 MEQ, LIDOCAINE 1% 25 MG in NACL 0.9% 250 ML IV SCH (14:30)
[2022-11-01 16:00] VITALS: BP 109/67; PULSE 87; RESP 18; TEMP 97.3; O2SAT 100
--- NOTE | 2022-11-01 18:52 | NUR ---
will endorse to material handler 1st shift rn for continuity of care to monitor electrolyte imbalance
[2022-11-01 20:00] VITALS: PULSE 94; RESP 18; O2SAT 98
--- NOTE | 2022-11-01 20:21 | NUR ---
ADMINISTERED SCHEDULED MEDICATION.
--- NOTE | 2022-11-01 20:24 | NUR ---
PATIENT ALERT ORIENTED IN BED RESTING ON ROOM AIR. NO ACUTE DISTRESS. COMPLAINED OF SEVERE PAIN 10/10 TO BILATERAL KNEES, HIPS, SHOULDERS AND BACK. MEDICATED ORDERED. CALL LIGHT WITHIN REACH. BED WHEELS LOCKED IN LOW POSITION. VISITOR AT BEDSIDE. WILL CONTINUE TO MONITOR PT.
[2022-11-02 04:00] VITALS: BP 102/57; PULSE 91; RESP 18; TEMP 98.4; O2SAT 100
[2022-11-02] MEDS: FUROSEMIDE 100 MG/10 ML VIAL IVP SCH (06:00)
[2022-11-02] MEDS: MIDODRINE 5 MG TAB PO SCH (06:31)
--- NOTE | 2022-11-02 06:43 | NUR ---
PATIENT AWAKE IN STABLE CONDITION. NO SOB. CALL LIGHT IN REACH. WILL ENDORSE TO THE NEXT SHIFT NURSE FOR CONTINUITY OF CARE.
--- NOTE | 2022-11-02 07:15 | NUR ---
RECEIVED REPORT FROM PESTICIDE CONTROL INSPECTOR NURSE FOR CONTINUITY OF CARE. PATIENT IS AWAKE, ALERT AND ORIENTED X4. CURRENTLY ON ROOM AIR WITH NO APPARENT SIGNS OF ACUTE DISTRESS NOTED. PATIENT STATES NO PAIN. SKIN WARM, DRY AND INTACT. IV SITE LOCATED AT LEFT AC 20 GAUGE AND RIGHT HAND 22 GAUGE, BOTH FLUSHED FOR PATENCY. CALL LIGHT WITHIN REACH, POC DISCUSSED, WHITE BOARD UPDATED.
[2022-11-02 08:00] VITALS: BP 108/62; PULSE 83; PULSE 88; RESP 18; RESP 20; TEMP 97.4; O2SAT 100; O2SAT 99
--- NOTE | 2022-11-02 08:00 | NUR ---
Patient's Plan of Care was discussed and reviewed with ИРИНА: SRINIVAS
[2022-11-02] MEDS: BLOOD GLUCOSE MONITORING 1 DEV DEV FS SCH (08:10)
[2022-11-02] MEDS: SPIRONOLACTONE 25 MG TAB PO SCH (08:11)
[2022-11-02] MEDS: metOLazone 5 MG TAB PO SCH (08:11)
[2022-11-02] MEDS ORDERED: SPIR50TA PO (08:35)
[2022-11-02] MEDS ORDERED: FURO40TA9 PO (08:35)
[2022-11-02 08:48] LABS: BASOPHILS # (AUTO) 0.1 K/uL (0.00-0.22); BASOPHILS % (AUTO) 0.9 % (0.0-2.0); EOSINOPHILS # (AUTO) 0.3 K/uL (0-0.4); EOSINOPHILS % (AUTO) 3.5 % (0.0-4.0); HEMATOCRIT 26.5 % (36-52); HEMOGLOBIN 8.8 g/dL (12.0-18.0); LYMPHOCYTES # (AUTO) 1.7 K/uL (2.0-11.5); LYMPHOCYTES % (AUTO) 23.8 % (20.5-51.1); MEAN CORPUSCULAR HEMOGLOBIN 29 pg (27-31); MEAN CORPUSCULAR HGB CONC 33 g/dL (33-37); MEAN CORPUSCULAR VOLUME 87.5 fL (80-94); MONOCYTES # (AUTO) 1.3 K/uL (0.8-1.0); MONOCYTES % (AUTO) 18.4 % (1.7-9.3); NEUTROPHILS # (AUTO) 3.9 K/uL (1.8-7.7); NEUTROPHILS % (AUTO) 53.4 % (42.2-75.2); PLATELET COUNT (AUTO) 249 K/uL (140-450); RED BLOOD CELL COUNT(AUTO) 3.03 MIL/uL (4.20-6.10); RED CELL DISTRIBUTION WIDTH 21.3 % (11.6-13.7); WHITE BLOOD COUNT (AUTO) 7.2 K/uL (4.8-10.8)
[2022-11-02 09:11] LABS: ANION GAP 8.4 (8-16); CREATININE 1.2 mg/dL (0.6-1.3); POTASSIUM 3.4 mmol/L (3.5-5.1)
[2022-11-02 09:49] VITALS: BP 108/58; PULSE 88; RESP 20; TEMP 97.4
--- NOTE | 2022-11-02 11:30 | NUR ---
PATIENT DISCHARGED TO HOME. ID BANDS AND IV SITE REMOVED. ALL BELONGINGS WITH PATIENT. PATIENT PICKED UP BY FAMILY.
== END 2022-11-02 11:30 | disposition home or self-care (01) | DRG 280 ==
LOC: MED 09:09 → MTU 12:50
PROVIDERS: ADMIT Hospitalist; ATTEND Emergency Medicine
PROC: 0W9G3ZZ Drainage of Peritoneal Cavity, Percutaneous Approach (ICD-10-PCS; principal; 2022-10-30)
PROC: 30233N1 Transfusion of Nonautologous Red Blood Cells into Peripheral Vein, Percutaneous Approach (ICD-10-PCS; 2022-10-31)
DX: K70.31 Alcoholic cirrhosis of liver with ascites (principal); R65.11 Systemic inflammatory response syndrome (SIRS) of non-infectious origin with acute organ dysfunction; E43 Unspecified severe protein-calorie malnutrition; N17.9 Acute kidney failure, unspecified; D63.8 Anemia in other chronic diseases classified elsewhere; E87.6 Hypokalemia; E66.9 Obesity, unspecified; I12.9 Hypertensive chronic kidney disease with stage 1 through stage 4 chronic kidney disease, or unspecified chronic kidney disease; E11.22 Type 2 diabetes mellitus with diabetic chronic kidney disease; N18.9 Chronic kidney disease, unspecified; E83.42 Hypomagnesemia; F17.200 Nicotine dependence, unspecified, uncomplicated; Z87.11 Personal history of peptic ulcer disease; Z68.41 Body mass index [BMI] 40.0-44.9, adult
CPT/HCPCS: 36415; 71045; 76700; 76705; 76770; 80048; 80053; 81003; 82272; 82570; 82728; 82945; 82948; 83036; 83540; 83690; 83735; 83880; 84100; 84157; 84300; 84484; 85025; 85610; 85730; 86900; 86901; 87070; 87075; 87081; 89051; 93005; 99285; G0482; J0696; J1940; J2001; J2270; J2916; J3475; J3480; J7030; J7060; P9017; P9046; Q0092